=== PATIENT | female | born 1955 | race Caucasian/White ===

== ENCOUNTER 2016-12-21 18:53 | Emergency (ER) | payer MEDICARE, MEDICAID ==
[2016-12-21 19:21] VITALS: TEMP 98.2; BMI 48.5
[2016-12-21 19:35] LABS: AUTOMATED BASOPHIL 1.3 % (0-2); AUTOMATED LYMPH 20.7 % (17-44); AUTOMATED MONOCYTE 5.6 % (3-10); AUTOMATED NEUTROPHIL 70.4 % (45-76); MPV 9.9 fL (7.4-10.4)
[2016-12-21 19:47] LABS: BLOOD UREA NITROGEN 16 MG/DL (7-17); CALC CORRECTED 9.8 MG/DL (8.4-10.2); CALCIUM 9.6 MG/DL (8.4-10.2); CALCULATED OSMOLALITY 271 MOs/Kg (270-290); CHLORIDE 106 mEq/L (98-107); GLUCOSE 116 MG/DL (70-99); SODIUM LEVEL 140 mEq/L (137-146); TOTAL PROTEIN 7.3 G/DL (6.3-8.2)
--- NOTE | 2016-12-21 20:30 | DIRPT ---
CLINICAL DATA: Chest pain and cough EXAM: CHEST 2 VIEW COMPARISON: 07/20/2016 FINDINGS: Normal heart size. There is prominence of the pulmonary arteries suggestive of PA hypertension. Both lungs are clear. Chronic deformity involving the more right fifth rib is identified. IMPRESSION: 1. No acute findings. 2. Suspect PA hypertension. Electronically Signed By: Socorro Gibbs M.D. On: 12/21/2016 20:27
--- NOTE | 2016-12-21 21:08 | EDPRACDOC ---
- General Information Chief Complaint: Chest Pain Stated Complaint: CHEST PAIN/HEADACHE Time Seen by Provider: 12/21/16 20:06 Mode of Arrival: Car Home Medications: Home Medications Alendronate Sodium [Fosamax] 5 mg PO DAILY 09/22/13 Gabapentin [Neurontin] 1,200 mg PO QID 09/22/13 Metoprolol Tartrate [Lopressor] 50 mg PO BID 09/22/13 Montelukast Sodium [Singulair] 10 mg PO DAILY 09/22/13 Valacyclovir HCl [Valtrex] 1,000 mg PO DAILY 09/22/13 Oxycodone HCl [Roxicodone] 15 mg PO TID 03/10/16 Albuterol Sulfate [Proair Hfa] 2 puff INH Q4-6H PRN 07/20/16 Atorvastatin Calcium 40 mg PO QHS 07/20/16 Furosemide [Lasix] 20 mg PO DAILY 07/20/16 Nystatin 1 applic TOP TID #1 tube 07/20/16 Prednisone [Deltasone, Orasone] 50 mg PO DAILY #5 tab 12/21/16 Sumatriptan Succinate [Imitrex] 100 mg PO DAILY PRN 12/21/16 Allergies/Adverse Reactions: Allergies Allergy/AdvReac Type Severity Reaction Status Date / Time hydrocodone [Hydrocodone] Allergy Mild Chills Verified 08/08/16 07:03 prednisone Allergy Angioedema* Verified 08/08/16 07:03 - History of Present Illness Onset: Yesterday HPI: PT PRESENTS WITH 5 DAYS OF PLEURITIC CHEST PAIN. WORSE WITH COUGHING OR DEEP BREATHING. Chest Pain Location: Reports: Right Chest, Left Chest Pain Radiation: Reports: None Symptoms Occur: Reports: At Rest Medications within 24 Hours: Reports: None Pain Description: Reports: Burning, Aching Pain Worsens With: Reports: Coughing, Breathing Associated Signs and Symptoms: Reports: SOB ED Past Medical History - History Reviewed Yes Nurses notes reviewed and agree except as marked - Patient Medical History Cardiac History: Reports: Hypertension, Congestive Heart Failure, Hypercholesterolemia Respiratory History: Reports: Asthma, COPD, Emphysema GI/ History: Reports: Gastroesophageal Reflux Psychological History: Reports: Depression Additional Past Medical History: Peripheral Neuropathy. Chronic Back Pain Surgical History: Reports: Cholecystectomy, Hysterectomy - Social Medical History Smoking Status: Never smoker Lives In: Home EDM Review of Systems - Review of Systems ROS Negative Except as Marked: Yes All systems reviewed and were negative except as marked Constitutional: negative: Fever Respiratory: Cough, Shortness of Breath Cardiovascular: Chest Pain Gastrointestinal: negative: Pain, Vomiting - Physical Exam Constitutional: Alert Oriented to: Time, Person, Place Last recorded Vital Signs: Last Vital Signs Temp 98.2 F 12/21/16 19:14 Pulse 59 L 12/21/16 20:13 Resp 20 12/21/16 20:13 BP 151/70 12/21/16 20:13 Pulse Ox 97 12/21/16 20:13 Oxygen Pulse Oxygen Saturation 97 O2 Device Room Air Oxygen Flow Rate Fraction of Inspired Oxygen ( FIO2) - HEENT Head: negative: Deformity, Laceration Eye Exam: negative: Conjunctival Injection, Pale Conjunctiva Oropharynx: negative: Membranes Dry Neck: negative: Limited ROM - Respiratory/Cardiovascular Respiratory: Normal - CTA. negative: Accessory Muscle Use, Diminished, Retractions, Tachypnea Cardiovascular: negative: Bradycardia, Tachycardia, Irregular - GI Auscultation: Normal Palpation: Normal Tenderness: Non tender - Integumentary Skin: Warm, Dry. negative: Rash - Neurologic Memory Impaired: Normal Motor Function: Normal Mood Description: Anxious, Appropriate Thought: Coherent Perception: Normal - Action Patient received Aspirin within last 24 hours?: No ASA given in the ED: No - Results 12/21/16 19:23 12/21/16 19:23 WBC 12.4 xk/uL (3.8-10.8) H 12/21/16 19:23 RBC 4.24 xM/uL (4.20-5.40) 12/21/16 19:23 Hgb 11.9 g/dL (12.0-16.0) L 12/21/16 19:23 Hct 37.4 % (36-47) 12/21/16 19:23 MCV 88 fL (81-99) 12/21/16 19:23 MCH 28.0 pg (27-32) 12/21/16 19:23 MCHC 31.7 g/dl (33-36) L 12/21/16 19:23 RDW 15.5 % (11.5-14.5) H 12/21/16 19:23 Plt Count 313 xk/uL (130-400) 12/21/16 19:23 MPV 9.9 fL (7.4-10.4) 12/21/16 19:23 Neut % (Auto) 70.4 % (45-76) 12/21/16 19:23 Lymph % (Auto) 20.7 % (17-44) 12/21/16 19:23 Harnett % (Auto) 5.6 % (3-10) 12/21/16 19:23 Eos % (Auto) 2.0 % (0-5) 12/21/16 19:23 Baso % (Auto) 1.3 % (0-2) 12/21/16 19:23 Absolute Neuts (auto) 8.68 xk/uL (1.7-8.2) H 12/21/16 19:23 Absolute Lymphs (auto) 2.48 xk/uL (0.65-4.75) 12/21/16 19:23 PT 10.6 SEC (9.2-11.2) 12/21/16 19:23 INR 1.0 12/21/16 19:23 APTT 24.0 SEC (22-35) 12/21/16 19:23 Sodium 140 mEq/L (137-146) 12/21/16 19:23 Potassium 3.3 mEq/L (3.5-5.1) L 12/21/16 19:23 Chloride 106 mEq/L (98-107) 12/21/16 19:23 Carbon Dioxide 22 mMOL/L (22-33) 12/21/16 19:23 Anion Gap 15 mEq/L (8-16) 12/21/16 19:23 BUN 16 MG/DL (7-17) 12/21/16 19:23 Creatinine 0.70 MG/DL (0.52-1.04) 12/21/16 19:23 Estimated GFR (MDRD) > 60 mL/min (>=60) 12/21/16 19:23 Glucose 116 MG/DL (70-99) H 12/21/16 19:23 Calculated Osmolality 271 MOs/Kg (270-290) 12/21/16 19:23 Calcium 9.6 MG/DL (8.4-10.2) 12/21/16 19:23 Corrected Calcium 9.8 MG/DL (8.4-10.2) 12/21/16 19:23 Total Bilirubin 0.6 MG/DL (0.2-1.3) 12/21/16 19:23 AST 23 IU/L (14-36) 12/21/16 19:23 ALT 30 IU/L (9-52) 12/21/16 19:23 Alkaline Phosphatase 68 IU/L (38-126) 12/21/16 19:23 Troponin I < 0.01 ng/mL (<.04) 12/21/16 19:23 Kwm-[id number]-Hutuyyxpbit Pept 142 pg/mL (0-900) 12/21/16 19:23 Total Protein 7.3 G/DL (6.3-8.2) 12/21/16 19:23 Albumin 3.8 G/DL (3.5-5.0) 12/21/16 19:23 Lab Results 12/21/16 12/21/16 12/21/16 19:23 19:23 19:23 WBC 12.4 H RBC 4.24 Hgb 11.9 L Hct 37.4 MCV 88 MCH 28.0 MCHC 31.7 L RDW 15.5 H Plt Count 313 MPV 9.9 Neut % (Auto) 70.4 Lymph % (Auto) 20.7 Harnett % (Auto) 5.6 Eos % (Auto) 2.0 Baso % (Auto) 1.3 Absolute Neuts (auto) 8.68 H Absolute Lymphs (auto) 2.48 PT 10.6 INR 1.0 APTT 24.0 Sodium 140 Potassium 3.3 L Chloride 106 Carbon Dioxide 22 Anion Gap 15 BUN 16 Creatinine 0.70 Estimated GFR (MDRD) > 60 Glucose 116 H Calculated Osmolality 271 Calcium 9.6 Corrected Calcium 9.8 Total Bilirubin 0.6 AST 23 ALT 30 Alkaline Phosphatase 68 Troponin I < 0.01 [id number]-[id number] Pept 142 Total Protein 7.3 Albumin 3.8 Laboratory Results - last 24 hr 12/21/16 12/21/16 12/21/16 19:23 19:23 19:23 WBC 12.4 H RBC 4.24 Hgb 11.9 L Hct 37.4 MCV 88 MCH 28.0 MCHC 31.7 L RDW 15.5 H Plt Count 313 MPV 9.9 Neut % (Auto) 70.4 Lymph % (Auto) 20.7 Harnett % (Auto) 5.6 Eos % (Auto) 2.0 Baso % (Auto) 1.3 Absolute Neuts (auto) 8.68 H Absolute Lymphs (auto) 2.48 PT 10.6 INR 1.0 APTT 24.0 Sodium 140 Potassium 3.3 L Chloride 106 Carbon Dioxide 22 Anion Gap 15 BUN 16 Creatinine 0.70 Estimated GFR (MDRD) > 60 Glucose 116 H Calculated Osmolality 271 Calcium 9.6 Corrected Calcium 9.8 Total Bilirubin 0.6 AST 23 ALT 30 Alkaline Phosphatase 68 Troponin I < 0.01 [id number]-Tqfvzttqveo Pept 142 Total Protein 7.3 Albumin 3.8 Laboratory Results 12/21/16 19:23 12/21/16 19:23 - EKG EKG #1 EKG Time: 19:20 -: Yes EKG interpreted by me Rate: bpm: 58 Rhythm: SB ST: Nonsp Decision Time to Discharge: 21:10 - Departure Yes I personally saw and evaluated the patient. Disposition: Home Condition: Stable Final Diagnosis: Acute bronchitis Instructions: Acute Bronchitis (ED) Education/Counseling Given To: Patient Education/Counseling Given Regarding: Diagnosis, Treatment, Prognosis, Follow Up Referrals: Robyn Mckee NP [Primary Care Provider] - Call for Appointment Prescriptions: New Prednisone [Deltasone, Orasone] 50 mg PO DAILY #5 tab Continue Montelukast Sodium [Singulair] 10 mg PO DAILY Alendronate Sodium [Fosamax] 5 mg PO DAILY Valacyclovir HCl [Valtrex] 1,000 mg PO DAILY Metoprolol Tartrate [Lopressor] 50 mg PO BID Gabapentin [Neurontin] 1,200 mg PO QID Oxycodone HCl [Roxicodone] 15 mg PO TID Furosemide [Lasix] 20 mg PO DAILY Atorvastatin Calcium 40 mg PO QHS Albuterol Sulfate [Proair Hfa] 2 puff INH Q4-6H PRN PRN Reason: Shortness Of Breath Nystatin 1 applic TOP TID #1 tube Sumatriptan Succinate [Imitrex] 100 mg PO DAILY PRN PRN Reason: Migraine Headache
[2016-12-21] MEDS ORDERED: PREDNISONE 10 MG TAB PO ONE (21:14)
[2016-12-21 21:44] VITALS: BP 154/74; PULSE 82
== END 2016-12-21 21:40 | disposition home or self-care (01) ==
LOC: ED 18:53
DX: J20.9 Acute bronchitis, unspecified (principal)
CPT/HCPCS: 36415; 71020; 80053; 83880; 84484; 85025; 85610; 85730; 93005; 99283; A9270; J3490